=== PATIENT | female | born 1935 | race Caucasian/White ===

== ENCOUNTER 2016-09-10 14:43 | Emergency (ER) | payer MEDICARE, OTHER, MEDICAID ==
[~2016-09-10] VITALS: Ht 160 cm; Wt 62.3 kg
[~2016-09-10 14:43] MED LIST: ATEN25TA7 PO; CALCIUM 500+VI1 EACH PO; CHOL200025 PO; CIPR-231 PO; COENZYME Q10 21 EACH PO; COU3 PO; CYAN1TAB42 PO; FISH PO; FOLI0.8T PO; IBAN150T PO; LORA2ORA PO; MELA1TAB13 PO; MULT-1018 PO; TYL325 PO; WARF6TAB2 PO
[2016-09-10 14:47] VITALS: BP 148/84; PULSE 91; RESP 12; O2SAT 97
--- NOTE | 2016-09-10 15:00 | ED.REPORT ---
HPI-General Illness Date of Service Sep 10, 2016 ED Provider: Robert Bermudez DO An 81 year old female with a previous history of PE, DVT, colorectal cancer s/p chemo and radiation with colostomy, breast cancer s/p lumpectomy, lung cancer status post resection, hyperparathyroidism, hypertension, hyperlipidemia and recurrent UTI's presents to the ED complaining of generalized weakness that began a few days ago. Associated symptoms include generalized malaise, decreased activity, lightheadedness and SOB. She began to express concern when she was unable to perform her activities of daily living due to the fatigue. Patient's last INR was 2.3 and she is on Coumadin. She denies chest pain or new onset cough. Patient was sent from Urgent Care for further evaluation. She is a current everyday smoker. Nursing Notes Stated Complaint: WEAK, LIGHT HEADED, SOB, SENT BY URGENT CARE Chief Complaint: General Complaint Nursing Notes Reviewed: Yes Allergies: Coded Allergies: hydrocodone (Verified Allergy, Unknown, UNKNOWN, 12/11/15) simvastatin (Verified Adverse Reaction, Unknown, MUSCLE CRAMPING, 12/11/15) Scheduled Acetaminophen-Expunged Drug, Do Not Renew! (Tylenol-Expunged Drug, Do Not Renew! ) 325 Mg Tablet 325-650 MG PO Q 6HRS PRN Atenolol-Expunged Drug, Do Not Renew! (Atenolol-Expunged Drug, Do Not Renew!) 25 Mg Tablet 25 MG PO HS Manuel Carb/Vitamin D3-Expunged, Do Not Renew! (CALCIUM 500/VIT D 400-Expunged, Do Not Renew!) 1 Each Tablet 1 EACH PO DAILY Cholecalciferol-Expunged Drug, Do Not Renew! (Vitamin D3-Expunged Drug, Do Not Renew!) 2,000 Unit Tablet 2,000 UNIT PO DAILY Ciprofloxacin (Cipro) 500 Mg Tablet 500 MG PO BID Cyanocobalamin/FA-Expunged Drug, Do Not Renew (Vitamin T25-Kbppj Acid-Expunged Drug, Do Not) 1 Each Tablet 1 EACH PO DAILY Fish Oil-Expunged Drug, Do Not Renew! (Fish Oil-Expunged Drug, Do Not Renew!) Cap 10 MG PO DAILY Folic Acid-Expunged Drug, Do Not Renew! (Folic Acid-Expunged Drug, Do Not Renew! ) 0.8 Mg Tablet 0.8 MG PO DAILY Ibandronate-Expunged Drug, Do Not Renew! (Boniva-Expunged Drug, Do Not Renew!) 150 Mg Tablet 150 MG PO monthly TAKE MONTHLY ON SAME DATE WITH FULL GLASS OF WATER AND REMAIN UPRIGHT. MULTIVITAMIN-Expunged Drug, Do Not Renew! (MULTI VITAMIN -Expunged Drug, Do Not Renew!) 1 Each Tablet 1 EACH PO DAILY Melatonin/Theanine-Expunged Drug, Do Not Rickie (Melatonin Forte-Expunged Drug, Do Not Renew!) 1 Tab Tablet 1 TAB PO HS Ubidecarenone/Vitamin E Mixed (Coenzyme Q10 200 Mg Caps) 1 Each Capsule 1 EACH PO DAILY Warfarin Inactive Drug Do Not Use (Coumadin Inactive Drug Do Not Use) 3 Mg Tablet 3 MG PO THURSDAYS ONLY 1700 (5 PM) DAILY Warfarin Sodium Inactive Drug Do Not Use (Coumadin Inactive Drug Do Not Use) 6 Mg Tablet 6 MG PO DAILY TAKE ONE DAILY EXCEPT ON THURSDAYS. Scheduled PRN Lorazepam-Expunged Drug, Do Not Renew! (Lorazepam-Expunged Drug, Do Not Renew!) 2 Mg/1 Ml Oral.conc 1 MG PO HS PRN PRN General Time Seen by MD: 14:59 Chief Complaint Weakness Hx Obtained From: Patient Arrived By: Walk-in Sudden in Onset?: No Onset Occurred: 3 days ago Symptom Duration: Since onset Associated with: Reports: Weakness, Denies: Chest pain, Cough Pertinent Negative: Pt denies other symptoms Recent Healthcare: No recent hospitalization, Recent doctor visit Past Medical History Past Medical History 1. Pancolonic diverticulosis and colonic polyps by colonoscopy in 2002. 2. Hypertension. 3. Hyperlipidemia. 4. History of DVT and pulmonary embolism, on chronic Coumadin anticoagulation. 5. Colorectal cancer status post chemotherapy and radiation. 6. Breast cancer status post lumpectomy and radiation. 7. Hyperparathyroidism status post surgery. 8. Myocardial perfusion scan in August 2010 was normal with an EF greater than 80%. 9. PE 10. [place] 11. UTI 12. Kidney stones 13. Osteoarthritis Reports: COPD Past Surgical History 1. Lobectomy 2. Colorectal surgery- ostomy 3. Appendectomy 4. Breast BX 5. Papathyoicetomy Smoking History Former Smoker Social History Alcohol Use: "Social" Drug Use: THC Other Social History: Good social support, Local resident Ambulatory Status Independent Review of Systems Decreased activity Full Review of Systems Constitutional: Reports: Fatigue, Malaise, Weakness - generalized, Denies: Chills, Fever Respiratory: Reports: Shortness of breath Cardiovascular: Denies: Chest pain GI: Denies: Nausea, Vomiting Neurologic: Reports: Lightheaded, Weakness, Denies: Change LOC Complete sys rev & neg: except as marked. Physical Exam Vital Signs Vital Signs Date Time Temp Pulse Resp B/P Pulse Ox O2 Delivery O2 Flow Rate FiO2 09/10/16 18:43 83 20 154/54 95 09/10/16 17:18 82 16 139/68 97 Room Air 09/10/16 16:33 87 20 138/78 96 Room Air 09/10/16 14:47 36.6 91 12 148/84 97 Room Air Initial VS: Reviewed Head / Eyes: Atraumatic, Normocephalic, PERRL Neck: Supple, Non-tender, Full range of motion Neurologic: Alert, Oriented, Nonfocal Psychiatric: Mood/affect normal, Behavior normal, Normal thought content General/Constitutional: Awake, Alert Respiratory / Chest: Atraumatic, Breath sounds NL, Breath sounds = bilat, No respiratory distress RESPIRATORY: No increased work of breathing Cardiovascular: Heart rate NL, Heart sounds NL Heart Rate / Rhythm: Positive: Irreg irregular rhythm Abdomen: Atraumatic, Soft Back: Atraumatic BACK: Mild CVA tenderness to palpation Upper Extremities Upper Extremity / MS: Atraumatic, Neurologic intact, Vascular intact Lower Extremity / Pelvis / MS: Atraumatic, Inspection NL, Neurologic intact, Vascular intact, No edema Skin: Atraumatic, Color NL, No rash, Warm, Dry Interpretation & Diagnostics Lab Results Interpretation Result Diagram: 09/10/16 1530 09/10/16 1530 Test 09/10/16 15:30 09/10/16 16:35 White Blood Count 9.0th/mm3 (3.8-10.1) Red Blood Count 4.85mil/mm3 (3.90-5.20) Hemoglobin 14.4g/dL (12.0-15.6) Hematocrit 42.3% (35.0-46.0) Mean Corpuscular Volume 87.2fL (81-100) Mean Corpuscular Hemoglobin 29.7pg (27.0-35.0) Mean Corpuscular Hemoglobin Concent 34.0% (32.0-37.0) Red Cell Distribution Width 14.6% (12.3-15.4) Platelet Count 172bil/L (150-400) Neutrophils (%) (Auto) 69.3% (40-74) Lymphocytes (%) (Auto) 19.9% (14-46) Monocytes (%) (Auto) 9.0% (4-12) Eosinophils (%) (Auto) 1.4% (0-5) Basophils (%) (Auto) 0.2% (0-3) Prothrombin Time 22.9sec (8.1-12.5) Prothromb Time International Ratio 2.11ratio Sodium Level 137mEq/L (134-144) Potassium Level 3.9mEq/L (3.5-5.2) Chloride Level 99mEq/L (97-108) Carbon Dioxide Level 22mmol/L (18-29) Blood Urea Nitrogen 13mg/dL (8-27) Creatinine 0.87mg/dL (0.57-1.00) Estimat Glomerular Filtration Rate 90mL/min (>59) Glucose Level 111mg/dL (60-99) Lactic Acid Level 0.9mmol/L (0.4-2.0) Calcium Level 10.1mg/dL (8.5-10.1) Magnesium Level 2.0mg/dL (1.6-2.6) Total Bilirubin 0.3mg/dL (0.0-1.2) Aspartate Amino Transf (AST/SGOT) 29U/L (0-50) Alanine Aminotransferase (ALT/SGPT) 19U/L (0-32) Alkaline Phosphatase 64U/L (25-165) Troponin T < 0.010ug/L (0.0-0.011) Pro-B-Type Natriuretic Peptide 279.6pg/mL (0-738) Total Protein 7.7g/dL (6.4-8.4) Albumin 4.2g/dL (3.4-5.0) Lipase 60U/L (13-60) Procalcitonin 0.03ng/mL (0.00-0.08) Urine Color Yellow (YELLOW) Urine Appearance Clear (CLEAR,HAZY) Urine pH 6.0 (5.0-8.0) Urine Specific [place] <1.005 (1.003-1.035) Urine Protein Negativemg/dL (NEG,TRACE) Urine Glucose (UA) Negativemg/dL (NEGATIVE) Urine Ketones Negativemg/dL (NEGATIVE) Urine Occult Blood Negative (NEGATIVE) Urine Nitrite Negative (NEGATIVE) Urine Bilirubin Negative (NEGATIVE) Urine Urobilinogen Normalmg/dL (NORMAL) Urine Leukocyte Esterase Small (NEGATIVE) Urine RBC 0-2/hpf (0-2) Urine WBC 0-5/hpf (0-5) Urine Epithelial Cells Few/hpf (NONE-MOD) Urine Crystals Amorphous urates (NONE Urine Bacteria Few/hpf (NONE-FEW) Urine Hyaline Casts None/lpf (NONE) Urine Granular Casts None seen (NONE SEEN) Urine Waxy Casts None seen (NONE SEEN) Urine Red Blood Cell Casts None seen (NONE SEEN) Urine White Blood Cell Casts None seen (NONE SEEN) Urine Mucus None seen (None Seen) Urine Trichomonas None seen (NONE SEEN) Urine Yeast None (NONE SEEN) Urinalysis Comment None Urine Culture Reflexed Indicated ECG Interpretation ECG Interpretation: Sinus Rhythm Rate 76 bpm Atrial premature complex Time: 15:20 Interpreted by: ED physician Normal ECG Interpretation: No change from prior ECGs ((12/11/2015)) X-Ray Chest Interpretation Chest Xray Interpretation: IMPRESSION: No acute process. Dictated by: Marcia Duran M.D. on 09/10/2016 at 15:57 Interpretation / Wet Read by: Interpret - Radiologist Re-Eval/Medical Decision Med Decision/Clinical Course 81-year-old female with extensive past medical history including 3 types of primary cancers which have all been treated successfully without known recurrence presents with symptoms of weakness, shortness of breath, and dizziness. Her symptoms have been ongoing for several days. Her EKG was unrevealing. Her chest x-ray was unremarkable for acute changes. Her lab studies were also unremarkable. Her INR was therapeutic today and patient notes all previous pro time readings as well as recurrent Coumadin dose have remained the same. We can effectively rule out pulmonary embolus with this. Patient was reassured by all these findings and felt that maybe her symptoms could be explained by anxiety. She notes she has a lot of stress in her life and has recently lost several of her close family members. I advised that she needs to have a stress test set up to completely rule out cardiac issues and she should discuss this with her primary care provider and follow-up. Patient agrees and was discharged home Time of Eval: 17:09 Patient Status: Condition improved Re-Evaluation/Progress Note: Patient is rechecked. She is informed of her lab results, X-ray results and diagnosis. All of the patient's questions are adressed. She understands and agrees with the treatment plan. Time of Eval: 18:27 Patient Status: Condition improved Re-Evaluation/Progress Note: Patient reports that she has been under a good amount of stress over the past few years and believes this may be the cause of her symptoms. Counseled Regarding: Diagnosis, Lab results, Need for follow-up, When/why to return to ED Discharge & Departure Primary Impression: Anxiety Additional Impressions: Shortness of breath Weakness Lightheaded Disposition: Home Discharge Condition All VS Reviewed: Yes Condition: Improved Patient Instructions: Chest Pain (ED), Generalized Anxiety Disorder (ED) Additional Instructions: Thank you for trusting us with your care this morning. Your emergency department evaluation including examination, EKG, chest X-ray, and lab work are all reassuring that there is no dangerous cause for concern at this time. Your INR today was 2.1, which is within normal range. Since a clear cause of your symptoms was not identified, I recommend you schedule a follow-up appointment with your primary care physician in the next 2- 3 days for a recheck. You may want to discuss the possibility of having a cardiac stress test with Dr. Benavides. Keep your appointment with your oncologist. Please return to the emergency department immediately for any new or worsening conditions including any shortness of breath, chest pain, fevers, chills, vomiting, lightheadedness, numbness or tingling. Referrals: Tom Benavides MD (PCP) [facility] Attestation Portions of this note were transcribed by Stephanie Young. I, Dr. Bermudez personally performed the history, physical exam and medical decision-making; I reviewed and confirmed the accuracy of the information in the transcribed note. Signed by: Rivka Velázquez, 09/10/16 1830. copies to: Tom Benavides MD, Gary R DO Sep 10, 2016 15:00 STEPHANIE YOUNG Sep 10, 2016 15:08
--- NOTE | 2016-09-10 15:59 | DRSVH ---
PROCEDURE: X-RAY CHEST, TWO VIEWS ([id number]) INDICATIONS: sob, weakness TECHNIQUE: 2 views of the chest were acquired. COMPARISON: [facility], CR, XR ABD ACUTE SERIES 3VW, 09/20/2015, 18:34. [facility], CR, XR CHEST 1VW (PORTABLE), 10/03/2015, 17:41. FINDINGS: Surgical changes and devices: Surgical clips within the lower neck, left chest wall, and left axilla. Lungs and pleura: No pleural effusions or pneumothorax. Lungs are clear. Mediastinum: Mediastinal contours are normal. Heart size is normal. Bones and chest wall: No suspicious bony abnormalities. Healed left rib fractures are present, as be fore. Soft tissues appear unremarkable. IMPRESSION: No acute process. Dictated by: Marcia Duran M.D. on 09/10/2016 at 15:57 Approved by: Marcia Duran M.D. on 09/10/2016 at 15:58
[2016-09-10] MEDS ORDERED: 0.9% Sodium Chloride 1,000 ML IV ONE (16:05)
[2016-09-10 16:13] LABS: BASOPHILS % (AUTO) 0.2 % (0-3); EOSINOPHILS % (AUTO) 1.4 % (0-5); Mean Corpuscular Hemoglobin 29.7 pg (27.0-35.0); Mean Corpuscular Volume 87.2 fL (81-100); NEUTROPHILS % (AUTO) 69.3 % (40-74); Platelet Count 172 bil/L (150-400)
[2016-09-10 16:19] LABS: INR 2.11 ratio
[2016-09-10 16:33] VITALS: BP 138/78; PULSE 87; RESP 20; O2SAT 96
[2016-09-10 16:40] LABS: TROPONIN T < 0.010 ug/L (0.0-0.011)
[2016-09-10 16:45] LABS: Lipase 60 U/L (13-60)
[2016-09-10 17:18] VITALS: BP 139/68; PULSE 82; RESP 16; O2SAT 97
[2016-09-10 17:24] LABS: APPEARANCE,URINE CLEAR (CLEAR,HAZY); COLOR,URINE YELLOW (YELLOW); OCCULT BLOOD,URINE NEGATIVE (NEGATIVE); UROBILINOGEN,URINE NORMAL (NORMAL)
[2016-09-10 18:43] VITALS: BP 154/54; PULSE 83; RESP 20; O2SAT 95
== END 2016-09-10 18:40 | disposition home or self-care (01) ==
LOC: SED 14:43
DX: F41.9 Anxiety disorder, unspecified (principal); I10 Essential (primary) hypertension; E78.5 Hyperlipidemia, unspecified; J44.9 Chronic obstructive pulmonary disease, unspecified; Z79.01 Long term (current) use of anticoagulants; Z87.01 Personal history of pneumonia (recurrent); Z87.891 Personal history of nicotine dependence; Z88.5 Allergy status to narcotic agent; Z88.8 Allergy status to other drugs, medicaments and biological substances
CPT/HCPCS: 36415; 71020; 80053; 81000; 83605; 83690; 83735; 83880; 84145; 84484; 85025; 85610; 87086; 87088; 93005; 99285; J7030